=== PATIENT | male | born 1965 | race Caucasian/White ===

== ENCOUNTER 2017-06-08 15:54 | Emergency (ER) | payer OTHER ==
[~2017-06-08] VITALS: Ht 177.8 cm; Wt 80.6 kg
[~2017-06-08 15:54] MED LIST: IBUP-1986 PO
[2017-06-08] MEDS ORDERED: CLIN-80 PO (16:14)
[2017-06-08 16:30] VITALS: BP 127/87
== END 2017-06-08 16:31 | disposition home or self-care (01) ==
LOC: ER 15:55
DX: S80.211A Abrasion, right knee, initial encounter (principal); L03.115 Cellulitis of right lower limb; G89.29 Other chronic pain; X58.XXXA Exposure to other specified factors, initial encounter; Y93.89 Activity, other specified; Y92.89 Other specified places as the place of occurrence of the external cause; Y99.8 Other external cause status
CPT/HCPCS: 99283

== ENCOUNTER 2025-03-15 20:56 | Emergency (ER) | payer MEDICAID ==
[~2025-03-15] VITALS: Ht 177.8 cm; Wt 64.0 kg
[2025-03-15 21:32] LABS: MEAN PLATELET VOLUME 8.6 FL (7.4-10.4); RED CELL DISTRIBUTION WIDTH 13.4 % (11.5-14.5)
[2025-03-15 21:47] LABS: CREATININE 1.09 MG/DL (0.60-1.10); TOTAL CARBON DIOXIDE 25.6 MMOL/L (24-32); eCRCL 64 ML/MIN; eGFR 69 ML/MIN
[2025-03-15] MEDS: ketorolac trometh 30MG/ML vial 30 MG/ML VIAL IM ONE (22:19)
[2025-03-15] MEDS: CIPROFLOXACIN HCL/DEXAMETH 7.5 ML DROPS.SUSP LEFT EAR SCH (23:00)
--- NOTE | 2025-03-15 23:05 | Physician Documentation ---
History of Present Illness ~ Chief Complaint: Ear Pain Stated Complaint: LEFT FACE NUMBNESS Time Seen by MD: 21:22 Primary Medical Doctor: None Medication Reconciliation Allergies: Coded Allergies: No Known Allergies (Unverified , 08/07/15) Scheduled Ibuprofen (Ibuprofen), 1 TAB PO Q8H Past Medical History Past Medical History: Chronic Pain Past Surgical History: no surgical history Alcohol Use: None Drug Use: none Lives with: Family Lives In: Home Review of Systems ROS As stated above in the HPI, otherwise all systems are reviewed and negative. Physical Exam Vital Signs: Temperature: 97.6, Source: Temporal, Heart Rate: 72, Respiratory Rate: 16, BP: 114/75, Pulse Oximetry: 98, Weight: 64.000 Physical Exam VITALS: Reviewed and as above. GENERAL: Alert, no apparent distress. HEENT: Normocephalic, atraumatic, PERRL, EOMI, dry mucosa, no erythema, edema noted to the external canal of the left ear pain with manipulation of the tragus and immediately anterior to the tragus. RESPIRATORY: Lungs clear, normal breath sounds, no respiratory distress. CHEST: No accessory muscle use, no retractions CV: Regular rate, rhythm, no edema, no murmur, No: JVD GI: Soft, non-tender, bowels sounds present, no rebound, guarding, or rigidity BACK: No CVA tenderness, or swelling MUSCULOSKELETAL No deformities, no edema SKIN: Warm and dry, no rash NEURO: Oriented x4, No motor or sensory deficit PSYCH: Normal mood and affect, no agitation Progress Results/Orders Results/Orders Orders - CHIDI LOVING Cipro 0.3%/Dexameth 0.1% Otic (Ciproflox (03/16/25 08:00) Completed Orders - CHIDI LOVING TILE CONDUIT LAYER CMP (03/15/25 21:03) Cbc/Diff (03/15/25 21:03) Procalcitonin (03/15/25 21:03) Ketorolac Trometh 30mg/Ml Vial (Toradol (03/15/25 22:10) Acetaminophen 325mg Tablet (Tylenol Tabl (03/15/25 22:10) Medications Received in ER Medications (Trade) Dose Ordered Sig/Naldo Route PRN Reason Start Time Stop Time Status Last Admin Dose Admin (Toradol inj. 30mg/ml) 30 mg ONCE ONCE IM 03/15/25 22:10 03/15/25 22:11 DC 03/15/25 22:19 30 MG (Tylenol tablet) 975 mg ONCE ONCE PO 03/15/25 22:10 03/15/25 22:11 DC 03/15/25 22:18 975 MG Vital Signs 03/15/25 03/15/25 21:00 22:19 Temp 97.6 Pulse 72 Resp 15 16 B/P (MAP) 114/75 Pulse Ox 98 Laboratory Tests Test 03/15/25 21:23 White Blood Count 9.1 Red Blood Count 5.43 Hemoglobin 15.4 Hematocrit 45.9 Mean Corpuscular Volume 84.6 Mean Corpuscular Hemoglobin 28.3 Mean Corpuscular Hemoglobin Concent 33.4 Red Cell Distribution Width 13.4 Platelet Count 215 Mean Platelet Volume 8.6 Neutrophils (%) (Auto) 76.6 H Lymphocytes (%) (Auto) 15.7 L Monocytes (%) (Auto) 5.7 Eosinophils (%) (Auto) 1.4 Basophils (%) (Auto) 0.6 Neutrophils # (Auto) 7.0 Lymphocytes # (Auto) 1.4 Monocytes # (Auto) 0.5 Eosinophils # (Auto) 0.1 Basophils # (Auto) 0.1 CBC Comment Sodium Level 134 L Potassium Level 4.7 Chloride Level 102 Carbon Dioxide Level 25.6 Anion Gap 6 L Blood Urea Nitrogen 15 Creatinine 1.09 Estimated GFR/1.73 m2 69 BUN/Creatinine Ratio 13.8 Glucose Level 361 H Calcium Level 8.5 Total Bilirubin 0.5 Aspartate Amino Transf (AST/SGOT) 2 L Alanine Aminotransferase (ALT/SGPT) 18 Alkaline Phosphatase 111 Total Protein 7.0 Albumin 3.2 L Globulin 3.8 Albumin/Globulin Ratio 0.8 L Procalcitonin < 0.05 Chemistry Comments Medical Decision Making Additional information obtaine: other Findings Patient: 59-year-old male Presenting Complaint: Left-sided ear pain for 2 days, radiating to jaw and preauricular area, severe tenderness to touch. Denies fever, chills, nausea, vomiting, diarrhea. Assessment: Clinical presentation is consistent with acute otitis externa: rapid onset otalgia, tenderness of pinna/tragus, and canal pain. No systemic symptoms or evidence of extension beyond the ear canal. No history of diabetes, immunocompromise, or prior ear surgery reported. Diagnosis is clinical, supported by classic findings and absence of red flag symptoms. Management: Analgesia: Toradol injection and acetaminophen administered for pain control, in line with guideline recommendations to address pain severity. Topical therapy: Initiated Ciprodex (ciprofloxacin/dexamethasone) ear drops, first dose given in ED. This is supported as first-line therapy for uncomplicated otitis externa, with evidence for efficacy and safety. Dosing: Four drops twice daily for 7 days, with instructions to warm the bottle and maintain position for 60 seconds after instillation. No oral antibiotics indicated, as there is no evidence of cellulitis, immunocompromise, or inability to use topical therapy. Patient education: Advised to avoid water exposure to the affected ear, refrain from inserting objects into the canal, and use earplugs or cotton with petroleum jelly during bathing. Follow-up: Patient instructed to follow up with PCP and return to ED for worsening symptoms, new pain, inability to chew/open mouth, or pain to posterior aspect, per guideline recommendations for reassessment if no improvement within 48-72 hours or if symptoms persist beyond 7-14 days. Disposition: Patient stable for discharge. Provided clear instructions for medication use, symptom monitoring, and follow-up. No imaging or further intervention required at this time. Ear Diff. Dx: Considerations: Include: Abrasion, Cerumen impaction, Foreign body, Otitis externa, Barotrauma, Otitis media, Perforation, Referred pain- dental, Referred pain-pharyngitis, Referred pain-sinusitis, Referred pain-TMJ syn., Tympanic Membrane Injury, Other Eye Diff. Dx: Considerations: Include: Chalazoin, Conjuctivits-allergic, Conjuctivitis-bacterial, Conjuctivits-chlamydial, Conjuctivitis-viral, Corneal abrasion, Corneal laceration, Corneal ulceration, Foreign body-conjuctiva, Foreign body-corneal, Foreign body-intraocular, Foreign body-lid, Glaucoma, Globe rupture, Hordeolum, Iritis, Orbital cellulitis, Periobital cellulitis, Retinal artery occulsion, Retinal vein occlusion, Rust ring, Subconjunctival hem, Ultraviolet keratitis, Uveitis, Vitreous hemorrhage, Other Nose Diff. Dx: Considerations: Include: Abrasion, Anterior nasal bleed, Avulsion, Contusion, Coagulopathy, Fracture-nasal bone, Fracture-septum, Hypertension, Laceration, Other, Posterior nasal bleed, Retained foreign body, Septal hematoma Tooth Diff. Dx: Considerations: Include: Alveolar fracture, Aveolar osteitis, ANUG, Facial cellulitis, Periapical abscess, Periodontal abscess, Post- extraction bleeding, Pulpitis, Trigeminal neuralgia, Tooth-avulsion, Tooth- eruption, Tooth-fracture, Tooth-subluxation, Other Throat Diff Dx: Considerations: Include: AIDS, Epiglottitis, Esophageal cand idiasis, Hand foot mouth disease, Herpangina, Herpetic stomatitis, Herpes simplex, Infection mononucleosis, Immunodeficiency, Rg's angina, Peritonsillar abscess, Peritonsillar cellulitis, Pharyngitis-diphtheria, Pharyngitis-strepococcal, Pharyngitis-viral, Thrush, URI, Other Departure Disposition: 01 HOME / SELF CARE / HOMELESS Impression: Primary Impression: Otitis externa Condition: Stable Discharge Instructions: Earache, Adult, Otitis Externa, [id number] Additional Instructions: You have been diagnosed with otitis externa ("swimmer's ear"), an infection and inflammation of the ear canal. This condition is usually caused by bacteria and can result in pain, swelling, and tenderness of the ear. Treatment: You received a Toradol injection and Tylenol for pain relief. You were prescribed Ciprodex ear drops. These drops contain an antibiotic and a steroid to treat the infection and reduce inflammation. How to use Ciprodex ear drops: If possible, have someone help you put the drops in your ear. Lie down with the affected ear facing up. Put enough drops in the ear canal to fill it up (follow the instructions on your prescription). Stay in this position for 3 to 5 minutes to let the drops work. You can use a timer. Gently move your ear or press on the small piece of cartilage in front of your ear (the tragus) to help the drops go in. Wipe away any extra drops from your ear. Protecting your ear: Keep your ear dry while you are using the drops. Do not swim or get water in your ear for 7 to 10 days. When showering, use earplugs or a cotton ball coated with petroleum jelly to keep water out. Do not put anything (like cotton swabs or headphones) into your ear canal until pain and any discharge have stopped. Avoid scratching or manipulating your ear, as this can make things worse. Pain and recovery: You may continue to use Tylenol or other pain medicine as needed. Most people start to feel better within a few days, but it is important to finish the full course of ear drops (usually 7 to 10 days). When to seek medical attention: If your pain gets worse, you develop fever, chills, trouble chewing or opening your mouth, swelling behind your ear, nausea, vomiting, or any new symptoms, return to the emergency department or contact your doctor. If your symptoms do not improve after 7 days, or if you still have pain or discharge after finishing the drops, follow up with your primary care provider. Prevention tips: After you recover, keep your ears dry and avoid putting objects into your ear canal to help prevent future infections. If you have any questions or concerns, please contact your healthcare provider. Referrals: NO PRIMARY CARE PROVIDER (PCP) Education Educated: Patient Educated regarding: diagnosis, treatment, need for follow up Signature Scribe Signature: A Attestation: Scribed for Chidi Loving by BILLIE Raymond . 03/15/25 23:04 CHIDI LOVING Mar 15, 2025 23:05
[2025-03-15 23:12] VITALS: BP 107/59; PULSE 59; RESP 16; TEMP 97.6; O2SAT 95
[2025-03-16] MEDS ORDERED: CIPROFLOXACIN HCL/DEXAMETH 7.5 ML DROPS.SUSP LEFT EAR SCH (08:00)
== END 2025-03-15 23:13 | disposition home or self-care (01) ==
LOC: ER 20:57
DX: H60.92 Unspecified otitis externa, left ear (principal)
CPT/HCPCS: 36415; 80053; 84145; 85025; 96372; 99283; J1885